=== PATIENT | male | born 1940 | race Caucasian/White ===

== ENCOUNTER → 2019-09-27 | Outpatient (CLI) | payer OTHER | END | disposition home or self-care (01) | LOC: LAB 10:02 | DX: R97.20 Elevated prostate specific antigen [PSA] (principal) ==

== ENCOUNTER → 2020-11-02 | Outpatient (CLI) | payer OTHER | END | disposition home or self-care (01) | LOC: COVID19 14:43 | PROVIDERS: ATTEND Student in an Organized Health Care Education/Training Program | DX: U07.1 COVID-19 (principal) ==

== ENCOUNTER → 2024-05-13 | Outpatient (CLI) | payer OTHER | LOC: CARD 10:25 | PROVIDERS: ATTEND Physician Assistant | DX: I35.0 Nonrheumatic aortic (valve) stenosis (principal); R01.1 Cardiac murmur, unspecified ==

== ENCOUNTER 2024-05-19 12:52 | Inpatient (IN) | payer OTHER ==
[~2024-05-19] VITALS: Ht 172.7 cm; Wt 78.0 kg
[2024-05-19 13:54] VITALS: BP 182/77
[2024-05-19] MEDS ORDERED: ASPIRIN, CHEWABLE 81 MG TAB PO ONE (14:00)
[2024-05-19 14:20] LABS: BASO # 0.1 10*3/uL (0.0-0.1); BASO % 0.7 % (0.0-1.0); EOS # 0.4 10*3/uL (0.0-0.4); EOS % 3.7 % (1.0-4.0); HEMATOCRIT 41.5 % (42.0-52.0); LYMPH # 2.8 10*3/uL (1.3-4.4); MEAN CELL VOLUME 92.4 fl (80.0-94.0); MEAN CORPUSCULAR HGB CONC 33.5 g/dl (33.0-37.0); MEAN PLATELET VOLUME 9.8 fl (9.6-12.3); MONO # 1.1 10*3/uL (0.1-1.0); MONO % 10.6 % (3.0-9.0); NEUT % 57.6 % (47.0-73.0); PLATELET COUNT AUTOMATED 221 10*3/uL (130-400); RED BLOOD COUNT 4.49 10*6/uL (4.50-5.90); RED CELL DISTRI WIDTH 12.8 % (0-14.5); WHITE BLOOD COUNT 10.4 10*3/uL (4.8-10.8)
[2024-05-19 14:36] LABS: ALKALINE PHOSPHATASE 124 U/L (46-116); BUN 20 mg/dl (9-23); CHLORIDE 106 mmol/L (98-107); SGPT/ALT 16 U/L (5-49); TOTAL PROTEIN 6.9 gm/dL (6.0-8.0)
[2024-05-19 14:40] LABS: ACT PARTIAL THROMBO TIME 24.9 SECONDS (20.0-32.1)
[2024-05-19] MEDS ORDERED: TAMSULOSIN HCL0.4 MG PO (15:44)
[2024-05-19] MEDS ORDERED: ATORVASTATIN CA40 M1 PO (15:44)
[2024-05-19] MEDS ORDERED: METFORMIN HYDR500 MG PO (15:44)
[2024-05-19] MEDS ORDERED: FAMOTIDINE20 M1 PO (15:46)
[2024-05-19] MEDS ORDERED: NITROGLYCERIN 1 IN PACKET T ONE (16:40)
[2024-05-19] MEDS ORDERED: HEPARIN SODIUM 250 ML IV SCH ×2 (16:40→18:10)
[2024-05-19] MEDS ORDERED: SODIUM CHLORIDE 0.9% 100 ML BAG IV ONE (16:50)
[2024-05-19] MEDS ORDERED: IOHEXOL 350 MG/ML 100 ML VIAL IV ONE (16:50)
[2024-05-19] MEDS ORDERED: METOPROLOL SUCCINATE XR 25 MG TAB PO ONE (16:55)
[2024-05-19 16:57] VITALS: BP 164/75
[2024-05-19 17:43] VITALS: BP 141/85
[2024-05-19 20:00] VITALS: BP 115/55
[2024-05-19] MEDS ORDERED: Ondansetron Hydrochloride 4 MG/2 ML VIAL IV PRN (22:15)
[2024-05-19] MEDS ORDERED: BISACODYL 10 MG SUPP R PRN (22:15)
[2024-05-19] MEDS ORDERED: Magnesium Hydroxide 30 ML UDC PO PRN (22:15)
[2024-05-19] MEDS ORDERED: BISACODYL 5 MG TAB PO PRN (22:15)
[2024-05-19] MEDS ORDERED: DEXTROSE 10 % IN WATER 250 ML IV PRN (22:15)
[2024-05-19] MEDS ORDERED: TEMAZEPAM 15 MG CAP PO PRN (22:15)
[2024-05-19 22:45] VITALS: BP 125/62
[2024-05-20 00:44] VITALS: BP 114/58
[2024-05-20 03:46] LABS: BASO # 0.1 10*3/uL (0.0-0.1); BASO % 0.9 % (0.0-1.0); EOS # 0.5 10*3/uL (0.0-0.4); EOS % 5.2 % (1.0-4.0); HEMATOCRIT 37.3 % (42.0-52.0); LYMPH # 3.7 10*3/uL (1.3-4.4); LYMPH % 36.8 % (27.0-41.0); MEAN CELL VOLUME 91.9 fl (80.0-94.0); MEAN CORPUSCULAR HGB 30.8 pg (27.0-31.0); MEAN CORPUSCULAR HGB CONC 33.5 g/dl (33.0-37.0); MONO # 1.2 10*3/uL (0.1-1.0); MONO % 11.7 % (3.0-9.0); NEUT # 4.5 10*3/uL (2.3-7.9); NEUT % 44.9 % (47.0-73.0); PLATELET COUNT AUTOMATED 189 10*3/uL (130-400); RED BLOOD COUNT 4.06 10*6/uL (4.50-5.90); RED CELL DISTRI WIDTH 12.8 % (0-14.5)
[2024-05-20 04:06] LABS: BUN 17 mg/dl (9-23); CHLORIDE 109 mmol/L (98-107); POTASSIUM 4.8 mmol/L (3.4-5.1)
[2024-05-20 04:23] VITALS: BP 117/54
[2024-05-20 06:38] VITALS: BP 133/80
[2024-05-20] MEDS ORDERED: INSULIN LISPRO 1 UNIT/0.01 ML SQ SCH (07:30)
[2024-05-20 08:03] VITALS: BP 134/74
[2024-05-20] MEDS ORDERED: ASPIRIN ENTERIC COATED 81 MG TAB PO SCH (10:00)
[2024-05-20] MEDS ORDERED: ATORVASTATIN CALCIUM 80 MG TAB PO SCH (10:00)
[2024-05-20 10:11] VITALS: BP 146/77
[2024-05-20 12:14] VITALS: BP 170/82
== END 2024-05-20 13:06 | disposition short-term general hospital (02) | DRG 282 ==
LOC: ED 12:52 → EDHOLD 21:47
PROVIDERS: Emergency Medicine; Student in an Organized Health Care Education/Training Program; ADMIT Family Medicine; ATTEND Family Medicine
DX: I21.4 Non-ST elevation (NSTEMI) myocardial infarction (principal); D50.9 Iron deficiency anemia, unspecified; I10 Essential (primary) hypertension; E78.00 Pure hypercholesterolemia, unspecified; B02.9 Zoster without complications; K21.9 Gastro-esophageal reflux disease without esophagitis; E11.65 Type 2 diabetes mellitus with hyperglycemia; E80.6 Other disorders of bilirubin metabolism; N40.0 Benign prostatic hyperplasia without lower urinary tract symptoms; Z83.6 Family history of other diseases of the respiratory system

== ENCOUNTER 2024-11-23 17:35 | Emergency (ER) | payer MEDICARE ==
[~2024-11-23] VITALS: Ht 180.3 cm; Wt 80.7 kg
[~2024-11-23 17:35] MED LIST: ATORVASTATIN CA40 M1 PO; FAMOTIDINE20 M1 PO; METFORMIN HYDR500 MG PO; TAMSULOSIN HCL0.4 MG PO
[2024-11-23 17:56] VITALS: BP 130/68
[2024-11-23] MEDS ORDERED: PANTOPRAZOLE SO40 MG PO (17:57)
[2024-11-23] MEDS ORDERED: ASPIRIN CHEWABL81 MG PO (17:57)
[2024-11-23] MEDS ORDERED: CLOPIDOGREL75 MG PO (17:58)
[2024-11-23] MEDS ORDERED: FLOMAX0.4 MG PO (17:58)
[2024-11-23] MEDS ORDERED: DIOVAN160 M2 PO (17:58)
[2024-11-23] MEDS ORDERED: ISOSORBIDE DINI30 MG PO (17:59)
[2024-11-23] MEDS ORDERED: SODIUM CHLORIDE 0.9% 1,000 ML IV ONE (18:10)
[2024-11-23] MEDS ORDERED: Metoclopramide Hydrochloride 10 MG/2 ML VIAL IV ONE (18:10)
[2024-11-23] MEDS ORDERED: FAMOTIDINE 50 ML IV ONE (18:10)
[2024-11-23] MEDS ORDERED: diphenhydrAMINE hydrochloride 50 MG/ML VIAL IV ONE (18:10)
[2024-11-23 18:28] LABS: HEMATOCRIT 39.8 % (42.0-52.0); MEAN CELL VOLUME 87.3 fl (80.0-94.0); MEAN CORPUSCULAR HGB 30.3 pg (27.0-31.0); MEAN CORPUSCULAR HGB CONC 34.7 g/dl (33.0-37.0); MEAN PLATELET VOLUME 9.9 fl (9.6-12.3); PLATELET COUNT AUTOMATED 219 10*3/uL (130-400); RED BLOOD COUNT 4.56 10*6/uL (4.50-5.90); RED CELL DISTRI WIDTH 12.5 % (0-14.5); WHITE BLOOD COUNT 26.2 10*3/uL (4.8-10.8)
[2024-11-23 18:34] LABS: MANUAL DIFF REFLEX YES
[2024-11-23 18:47] LABS: BUN 18 mg/dl (9-23); CHLORIDE 105 mmol/L (98-107); POTASSIUM 3.6 mmol/L (3.4-5.1)
[2024-11-23] MEDS ORDERED: Ondansetron4 MG PO (18:52)
[2024-11-23] MEDS ORDERED: CIPRO500 MG PO (18:52)
[2024-11-23] MEDS ORDERED: PEPCID20 MG PO (18:52)
[2024-11-23 19:07] LABS: BASOPHILS 1 % (0-1); PLATELET SUFFICIENCY NORMAL (NORMAL); TOTAL CELLS COUNTED 100 #CELLS
[2024-11-23 19:08] LABS: BURR CELLS FEW; POLYCHROMASIA SLIGHT
[2024-11-26] MEDS ORDERED: VOLTAREN ARTHRI20 GM T (16:00)
== END 2024-11-23 18:59 | disposition home or self-care (01) ==
LOC: ED 17:35
PROVIDERS: Emergency Medicine
DX: R11.2 Nausea with vomiting, unspecified (principal); E11.9 Type 2 diabetes mellitus without complications; I10 Essential (primary) hypertension; E78.5 Hyperlipidemia, unspecified; Z98.890 Other specified postprocedural states

== ENCOUNTER 2025-04-19 12:49 | Emergency (ER) | payer MEDICARE ==
[~2025-04-19] VITALS: Ht 170.1 cm; Wt 73.5 kg
[~2025-04-19 12:49] MED LIST changes: +ASPIRIN CHEWABL81 MG PO; +CIPRO500 MG PO; +CLOPIDOGREL75 MG PO; +DIOVAN160 M2 PO; +ELIQUIS5 M1 PO; +FLOMAX0.4 MG PO; +IMDUR SA30 MG PO; +ISOSORBIDE DINI30 MG PO; +Ondansetron4 MG PO; +PANTOPRAZOLE SO40 MG PO; +PEPCID20 MG PO; +VOLTAREN ARTHRI20 GM T
[2025-04-19 13:11] VITALS: BP 131/111
[2025-04-19 13:58] LABS: BILIRUBIN Negative (Negative); BLOOD Negative (Negative); CLARITY Clear (Clear); COLOR Yellow (Yellow); GLUCOSE Trace (Negative); KETONE Negative (Negative); LEUKO ESTERASE Negative (Negative); NITRITE Negative (Negative)
[2025-04-19 14:09] LABS: WBC 0-2 wbc/hpf (0-5)
[2025-04-19] MEDS ORDERED: IOHEXOL 300 MG/ML 100 ML VIAL IV ONE (14:15)
[2025-04-19] MEDS ORDERED: SODIUM CHLORIDE 0.9% 1,000 ML IV ONE (14:15)
[2025-04-19 14:33] LABS: BASO # 0.1 10*3/uL (0.0-0.1); BASO % 0.3 % (0.0-1.0); EOS % 0.1 % (1.0-4.0); HEMATOCRIT 43.3 % (42.0-52.0); MEAN CELL VOLUME 89.3 fl (80.0-94.0); MEAN CORPUSCULAR HGB 29.5 pg (27.0-31.0); MEAN PLATELET VOLUME 9.9 fl (9.6-12.3); MONO # 1.2 10*3/uL (0.1-1.0); MONO % 7.6 % (3.0-9.0); NEUT # 12.8 10*3/uL (2.3-7.9); NEUT % 82.3 % (47.0-73.0); PLATELET COUNT AUTOMATED 223 10*3/uL (130-400); RED BLOOD COUNT 4.85 10*6/uL (4.50-5.90); RED CELL DISTRI WIDTH 12.8 % (0-14.5); WHITE BLOOD COUNT 15.5 10*3/uL (4.8-10.8)
[2025-04-19 14:54] LABS: ALKALINE PHOSPHATASE 143 U/L (46-116); BUN 16 mg/dl (9-23); CHLORIDE 103 mmol/L (98-107); LIPASE 29 U/L (12-53); POTASSIUM 4.2 mmol/L (3.4-5.1); SGPT/ALT 22 U/L (5-49); TOTAL PROTEIN 7.7 gm/dL (6.0-8.0)
[2025-04-19] MEDS ORDERED: SODIUM CHLORIDE 0.9% 1,000 ML IV SCH (15:40)
[2025-04-19] MEDS ORDERED: FLOMAX0.4 MG PO (16:03)
== END 2025-04-19 16:19 | disposition home or self-care (01) ==
LOC: ED 12:49
PROVIDERS: Internal Medicine
DX: K29.70 Gastritis, unspecified, without bleeding (principal); K83.1 Obstruction of bile duct; R11.10 Vomiting, unspecified; R35.0 Frequency of micturition; Z79.899 Other long term (current) drug therapy; Z95.5 Presence of coronary angioplasty implant and graft; Z90.49 Acquired absence of other specified parts of digestive tract; Z53.29 Procedure and treatment not carried out because of patient's decision for other reasons

== ENCOUNTER → 2025-06-13 | Outpatient (CLI) | payer MEDICARE | END | disposition home or self-care (01) | LOC: US 08:26 | PROVIDERS: ATTEND Physician Assistant | DX: K76.0 Fatty (change of) liver, not elsewhere classified (principal) ==